=== PATIENT | female | born 1935 | race African-American/Black ===

== ENCOUNTER 2016-08-19 07:03 | Day surgery (SDC) | payer OTHER ==
[2016-08-19] MEDS ORDERED: D5 LR 1000 ML 1,000 ML IV ONE (07:36)
[2016-08-19] MEDS ORDERED: DIPRIVAN VIAL 20 ML ONE (08:46)
[2016-08-19 09:12] VITALS: BP 122/84
== END 2016-08-19 09:16 | disposition home or self-care (01) ==
LOC: SURG1 07:03
PROVIDERS: ATTEND Internal Medicine Gastroenterology
PROC: 0DJD8ZZ Inspection of Lower Intestinal Tract, Via Natural or Artificial Opening Endoscopic (ICD-10-PCS; principal; 2016-08-19 08:15)
DX: Z86.010 Personal history of colon polyps (principal); K64.0 First degree hemorrhoids
CPT/HCPCS: A4217; J3490; J7120

== ENCOUNTER → 2016-11-04 | Outpatient (CLI) | payer OTHER ==
--- NOTE | 2016-11-05 09:39 | MRI ---
HISTORY: Low back pain, left sciatica Study: MRI lumbar spine without contrast Comparison: None Technique: Multiplanar multi-sequence MRI of the lumbar spine was obtained. Sagittal T1, sagittal T2 , and stir weighted images, axial T1, and axial T2 images were obtained. Findings: Mild levoscoliosis is present. The lumbar spine demonstrates otherwise normal alignment with the expe cted signal characteristics of the bone marrow with the exception of degenerative endplate changes at T12-L1. The conus of the cord terminates normally. T12 -- L1: There is a focal leftward disc protrusion which contributes along with marked left facet j oint arthropathy to foraminal narrowing on the left. The right neural foramen is patent. The right fa cet joint is normal. L1 -- L2: No evidence for compressive disc disease. The neural foramina are patent. The joints are no rmal. L2 -- L3: No evidence for compressive disc disease. The neural foramina are patent. Mild bilateral fa cet arthropathy is present. L3 -- L4: No evidence for compressive disc disease. The neural foramina are patent. Mild bilateral fa cet arthropathy is present. L4 -- L5: No evidence for compressive disc disease. The neural foramina are patent. Bilateral facet a rthropathy is present more prominent than at the levels above. L5 -- S1: Mild broad-based disk bulging contributes to lateral recess narrowing on the left. The righ t neural foramen is patent. Mild bilateral facet arthropathy is present. IMPRESSION: As above Reported By:
--- NOTE | 2016-11-05 09:42 | MRI ---
HISTORY: Thoracic spine pain, mid back pain Study: MRI thoracic spine without contrast Comparison: None Technique: Multi planar multi sequence non contrast imaging Findings: The prevertebral soft tissues are normal. The vertebral body alignment and bone signal is normal. The thoracic spinal cord is normal in size and configuration and without foci of abnormal signal. There is no evidence for compressive disc disease or compressive spondylitic change at any level. The joint s appear within normal limits. IMPRESSION: No evidence for compressive disc disease or compresses spondylitic change at any level. Reported By:
== END ==
LOC: RAD 12:31
PROVIDERS: ATTEND Internal Medicine
DX: M25.552 Pain in left hip (principal); M54.6 Pain in thoracic spine; M54.32 Sciatica, left side; M51.26 Other intervertebral disc displacement, lumbar region
CPT/HCPCS: 72146; 72148

== ENCOUNTER 2017-03-02 06:37 | Emergency (ER) | payer OTHER ==
[2017-03-02 06:48] VITALS: BMI 21.9
[2017-03-02] MEDS ORDERED: CATAPRES TAB 0.1 MG PO ONE (07:14)
--- NOTE | 2017-03-02 07:14 | DR.GENAD ---
HPI - PCP Primary Care Physician: BOLIVAR - HPI Comment HPI Comment: HISTORY BELOW. DENIES CHEST PAIN OR DIZZINESS. SEVERE HEADACHE REPORTED. - Complaint/Symptoms Chief Complaint Doctors Comments: ELEVATED BP AND SEVERE HEADACHE. Chief Complaint:: PT C/O HIGH BLOOD PRESSURE WITH A SEVERE HEADACHE IN THE BACK OF HER HEAD. PT STATES THIS ALL STARTED YESTERDAY AND IT IS NOT GETTING ANY BETTER. PT STATES SHE HAS NEVER HAD ANY PAIN LIKE THIS - Nurses notes reviewed Nurses Notes Review: Yes - Source History Provided: Patient - Mode of Arrival Mode of Arrival: Ambulatory - Timing Onset of Chief Complaint: 03/01/17 Came on: Suddenly - Duration Duration: Constant Duration: Days - Severity Severity: Moderate PMH - PMH Past Medical History: Yes Past Medical History: Arthritis, Hypertension Past Surgical History: Yes Surgical History: Ortho Surgery - Family History History of Family Medical Conditions: No - Social History Does any household member use tobacco: No Alcohol Use: None Do you use any recreational Drugs:: No Lives With: Alone Lives Where: Home - infectious screening In the last 2 months have you had wt loss of >10#?: NO Have you had fever, night sweats or hemotysis?: No Have you traveled outside the country in the last 6 months?: No Isolation: Standard ROS - Review of Systems Constitutional: No Symptoms Reported Eyes: No Symptoms Reported ENTM: No Symptoms Reported Respiratoy: No Symptoms Reported Cardiovascular: No Symptoms Reported Gastrointestinal/Abdominal: No Symptoms Reported Genitourinary: No Symptoms Reported Neurological: Headache Musculoskeletal: No Symptoms Reported Integumentary: No Symptoms Reported Hematologic/Lymphatic: No Symptoms Reported Endocrine: No Symptoms Reported All Other Systems: Reviewed and Negative PE - Vital Signs Vitals: Temperature 97.7 F Pulse Rate [Left Brachial] 66 Pulse Rate 94 Respiratory Rate 18 Blood Pressure [Left Arm] 161/81 Blood Pressure 180/100 O2 Sat by Pulse Oximetry 95 - General Limitations: No Limitations General Appearance: Alert - Head Head Exam: Normal Inspection - Eyes Eye exam: Normal Appearance - ENT ENT Exam: Normal External Ear Exam External Ear Exam: Normal External Inspection TM/Canal Exam: Bilateral Normal Nose Exam: Normal Nose Exam Mouth Exam: Normal Inspection Throat Exam: Normal Inspection - Neck Neck Exam: Normal Inspection - Chest Chest Inspection: Symmetric Chest Wall Rise - Respiratory Respiratory Exam: Normal Lung Sounds Bilat Respiratory Exam: Bilateral Clear to Auscultation - Cardiovascular Cardiovascular Exam: Regular Rate, Normal Rhythm, Normal Heart Sounds - Abdominal Exam Abdominal Exam: Normal Bowel Sounds, Soft. negative: Tenderness - Extremities Extremities Exam: Normal Inspection - Back Back Exam: Normal Inspection - Neurologic Neurological Exam: Alert, Oriented X3 - Psychiatric Psychiatric Exam: Normal Affect, Normal Mood - Skin Skin Exam: Normal Color MDM - Differential Diagnosis Differential Diagnosis: HYPERTENSION Course - Treatment Treatment: SEE ORDERS - Education/Counseling Education/Counseling: Patient, Education Educated On: Treatment, Diagnosis, Needs for Follow Up - Diagnosis Discharge Problem: Hypertension Qualifiers: Hypertension type: essential hypertension Qualified Code(s): I10 - Essential ( primary) hypertension - Discharge Plan Disposition: HOME, SELF-CARE Condition: Stable Prescriptions: Clonidine [Catapres-Tts 1] 0.1 mg TD BID #60 dis - Follow ups/Referrals Follow ups/Referrals: Taurus Braun [Primary Care Provider] - 3 days - Instructions Instructions: Hypertension, [id number] Additional Instructions: RETURN TO ED IF WORSE. CHECK BP AND CHART AND TAKE TO PCP.
[2017-03-02] MEDS ORDERED: CATAPRES TAB 0.1 MG ONE (07:17)
[2017-03-02 08:04] VITALS: BP 161/81
== END 2017-03-02 09:23 | disposition home or self-care (01) ==
LOC: ER 06:37
DX: I10 Essential (primary) hypertension (principal)
CPT/HCPCS: 99282

== ENCOUNTER → 2017-04-18 | Outpatient (CLI) | payer OTHER ==
--- NOTE | 2017-04-21 15:59 | MG ---
HISTORY: SCREENING Comparison: Multiple priors dating back to October 04, 2007 FINDINGS: Bilateral CC and MLO projections of the right and left breast were obtained. Heterogeneously dense f ibroglandular tissue is seen to be present without suspicious interval change. No significant miles ectural distortion, mass or clustered microcalcifications can be observed to suggest malignancy. No skin thickening or nipple retraction is appreciated. No pathological lymphadenopathy can be identif ied. IMPRESSION: NO RADIOGRAPHIC EVIDENCE OF MALIGNANCY. ACR CATEGORY I - NEGATIVE EXAM. FOLLOW-UP EXAM 1 YEAR. Diagnostic CAD was utilized and reviewed. * 0 (ZERO) - ASSESSMENT INCOMPLETE; ADDITIONAL IMAGING IS NEEDED. * / (ONE) - NEGATIVE. * 2/II (TWO) - BENIGN FINDINGS. * 3/III (THREE) - PROBABLY BENIGN FINDING; SHORT INTERVAL FOLLOW-UP SUGGESTED. * 4/IV (FOUR) - SUSPICIOUS ABNORMALITY; BIOPSY SHOULD BE CONSIDERED. * 5/V - HIGHLY SUSPICIOUS OF MALIGNANCY; BIOPSY SHOULD BE PERFORMED. A NEGATIVE X-RAY REPORT SHOULD NOT DELAY BIOPSY IF A DOMINANT OR CLINICALLY SUSPICIOUS MASS IS PRESENT; 4 TO 8 PERCENT OF CANCERS ARE NOT IDENTIFIED BY X-RAY. A NEGA TIVE REPORT MAY REINFORCE THE CLINICAL IMPRESSION. ADENOSIS AND DENSE BREASTS MAY OBSCURE AN UNDERLY ING NEOPLASM. Reported By:
== END ==
LOC: RAD 09:12
PROVIDERS: ATTEND Internal Medicine
DX: Z12.31 Encounter for screening mammogram for malignant neoplasm of breast (principal)
CPT/HCPCS: 77067

== ENCOUNTER → 2017-07-11 | Outpatient (CLI) | payer OTHER ==
--- NOTE | 2017-07-11 12:02 | VAS ---
HISTORY: Extremity pain, swelling, and edema Study: Right upper extremity Doppler venous ultrasound. TECHNIQUE: Multiple holden scale and color flow Doppler images of the deep venous system were obtained of the upper extremity. FINDINGS: The deep venous system of the right upper extremity evaluated from the level of the sports intern al jugular vein through the radial and ulnar veins. Normal color flow and augmentation can be observ ed. In addition, normal compression is seen throughout the upper extremity deep venous system. No so ft tissue hematoma is seen. IMPRESSION: 1. Negative examination for DVT. Reported By:
== END ==
LOC: RAD 10:45
PROVIDERS: ATTEND Internal Medicine
DX: I82.602 Acute embolism and thrombosis of unspecified veins of left upper extremity (principal); I82.601 Acute embolism and thrombosis of unspecified veins of right upper extremity
CPT/HCPCS: 93971